=== PATIENT | female | born 1985 | race African-American/Black ===

== ENCOUNTER 2021-12-10 20:56 | Emergency (ER) | payer OTHER ==
[~2021-12-10] VITALS: Ht 185.4 cm; Wt 107.0 kg
[2021-12-10] MEDS ORDERED: HYDROCODONE/ACETAMINOPHEN 5/325MG TABLET PO ONE (23:15)
[2021-12-10] MEDS ORDERED: CIPR750T4 MT (23:15)
[2021-12-10] MEDS ORDERED: HYDR-4001 MT (23:15)
[2021-12-11 00:45] VITALS: BP 121/76
== END 2021-12-11 00:45 | disposition home or self-care (01) ==
LOC: ER 20:56
DX: H61.002 Unspecified perichondritis of left external ear (principal)
CPT/HCPCS: 81025; 99283